=== PATIENT | male | born 1985 | race Caucasian/White ===

== ENCOUNTER 2019-02-20 05:42 | Emergency (ER) | payer OTHER ==
[~2019-02-20] VITALS: Ht 198.1 cm; Wt 105.7 kg
[~2019-02-20 05:42] MED LIST: CHEWABLE-VITE1 EAC1 PO; CITRATE OF MAG296 ML PO; CLARITIN10 MG PO; KEFLEX500 MG PO; MEDROLDOSEPACK PO; NOHOMEMEDICATIONS; PRILOSEC20 MG PO; ZOFRAN ODT4 MG PO; ZPAK PO
[2019-02-20 06:08] LABS: ABSOLUTE EOSINOPHILS 0.2 thou/uL (0.0-0.7); ABSOLUTE LYMPHOCYTES 2.5 thou/uL (0.8-5.3); ABSOLUTE NEUTROPHILS 9.7 thou/uL (1.6-8.1); BASOPHILS 0.3 %; EOSINOPHILS 1.4 %; HEMATOCRIT 45.1 % (42.0-52.0); HEMOGLOBIN 15.2 gm/dL (14.0-18.0); LYMPHOCYTES 18.7 %; MCH 30.2 pg (26.0-34.0); MCHC 33.7 g/dL (28.0-37.0); MCV 89.6 fL (80.0-100.0); MONOCYTES 7.6 %; MPV 8.2 fl. (7.2-11.1); NUCLEATED RBCS 0 /100WBC; PLATELET COUNT* 215 thou/uL (150-400); RBC 5.03 mil/uL (4.50-6.00); RDW-CV 13.6 % (10.5-14.5); WBC 13.5 thou/uL (4.0-11.0)
[2019-02-20 06:09] LABS: CALCIUM 9.2 mg/dL (8.5-10.1); CREATININE 1.2 mg/dL (0.6-1.3); POTASSIUM 3.9 mmol/L (3.5-5.1)
[2019-02-20] MEDS ORDERED: FLOMAX0.4 MG PO (08:12)
[2019-02-20] MEDS ORDERED: CIPROFLOXACIN500 M1 PO (08:12)
[2019-02-20] MEDS ORDERED: PERCOCET 5-3251 EACH PO (08:12)
[2019-02-20 08:33] VITALS: BP 121/78
== END 2019-02-20 08:34 | disposition home or self-care (01) ==
LOC: M.ERS 05:42
PROVIDERS: Emergency Medicine
DX: N20.0 Calculus of kidney (principal); I10 Essential (primary) hypertension; F41.9 Anxiety disorder, unspecified